=== PATIENT | male | born 1945 | race Caucasian/White ===

== ENCOUNTER 2021-10-13 20:36 | Inpatient (IN) | payer BC, MEDICARE, SELFPAY ==
[2021-10-13 20:42] VITALS: BP 183/58; PULSE 63; TEMP 36.2; O2SAT 96
--- NOTE | 2021-10-13 20:45 | RT.EKG_ITS ---
APPROVED REPORT Exam: Resting ECG Reason for Exam: SOB, Near syncope Patient Location: E HR:64 bpm ECG Measurements Heart Rate 64 AXIS HI 214 P 0 QRSd 94 QRS 51 QT 410 T 47 QTc 423 Conclusion Sinus rhythm...normal P axis, V-rate 60- 99 Supraventricular bigeminy...bigeminy string>4 w/ SV complexes Sinus pause...long R-R interval, normal QRSd Anterior infarct, old...Q >40mS, abnormal ST-T, V2-V5
[2021-10-13 20:48] VITALS: RESP 18
--- NOTE | 2021-10-13 21:30 | DI.RAD_ITS ---
Exam(s) XR PORTABLE CHEST AP EXAM: XR PORTABLE CHEST AP CLINICAL HISTORY: chest pain TECHNIQUE: COMPARISON: No exams were available for comparison FINDINGS: The heart is not enlarged. There are diffuse bilateral pulmonary interstitial radiodensities which a re nonspecific and may be chronic. Possible superimposed left-sided diffuse opacities. No prior vernon ms available for comparison. IMPRESSION: Probable pulmonary fibrosis, possible left-sided acute infiltrate. Appropriate follow-up radiographs or chest CT recommended. RADIATION DOSE DELIVERED: Total DLP
--- NOTE | 2021-10-13 21:30 | DI.CT_ITS ---
Exam(s) CT BRAIN CTA EXAM: CT BRAIN CTA CLINICAL HISTORY: expressive aphasia. TECHNIQUE: Imaging Protocol: Axial CT angiography was performed with multi-slice acquisition and mu lti-planar and/or 3D reconstructions. Pre contrast scanning and 5 minutes post contrast delay scanni ng were also obtained. CONTRAST MATERIAL: Intravenous: Omnipaque 350 Contrast volume:structured data in ml COMPARISON: No exams were available for comparison FINDINGS: CT HEAD WITHOUT: Ventricles and Extra axial spaces: Normal in size and morphology for the patient's age. Hemorrhage: None. Cerebral parenchyma: Mild generalized cerebral atrophy. Midline shift: None. Brainstem/Cerebellum: Normal. Calvarium: Normal. Visualized Paranasal sinuses/Mastoids: Clear. CTA HEAD WITH: Internal Carotid Arteries: Petrous: Normal. Cavernous: Normal. Cerebral: Normal. Middle Cerebral Arteries: Right: No aneurysm, occlusion or significant stenosis. Left: No aneurysm, occlusion or significant stenosis. Anterior Cerebral Arteries: Right: No aneurysm, occlusion or significant stenosis. Left: No aneurysm, occlusion or significant stenosis. Posterial Cerebral Arteries: Right: No aneurysm, occlusion or significant stenosis. Left: No aneurysm, occlusion or significant stenosis. Vertebral Arteries: Right: No aneurysm, occlusion or significant stenosis. Left: No aneurysm, occlusion or significant stenosis. Basilar Artery: No aneurysm, occlusion or significant stenosis. No mass lesion or enhancing lesion identified on post contrast scanning. IMPRESSION: Normal CT of the head without contrast. Normal CTA examination of the [facility] [place]. Normal post contrast cranial CT. RADIATION DOSE DELIVERED: 2,133.65mGy.cm Total DLP 2,133.65mGy.cm Total DLP !Error CTDIvol DATA REPOSITORY: All CT scans at this facility are submitted to the National Radiology Data Registry (NRDR) Dose Index Registry (DIR) with the [employer] (ACR). RADIATION OPTIMIZATION: All CT scans at this facility use at least one of these dose optimization te chniques: automated exposure control; mA and/or kV adjustment per patient size (includes targeted exa ms where dose is matched to clinical indication); or iterative reconstruction.
--- NOTE | 2021-10-13 21:39 | W.ED.GENAD ---
Discharge Plan Disposition Patient Disposition: [facility] INPATIENT Condition: Stable Discharge Details Clinical Impression: Expressive aphasia Primary Care Provider: Linda,Local ED Provider: Harlan Lowe Home Meds and New Rx's Prescriptions: No Action atorvastatin 40 mg Tablet 40 mg PO DAILY diltiazem HCl 180 mg Capsule,Extended Release 24 Hr 180 mg PO DAILY aspirin [Aspir-81] 81 mg Tablet,Delayed Release (Dr/Ec) 81 mg PO DAILY oxycodone-acetaminophen [Percocet] 5-325 mg Tablet 1 tab PO TID metformin 1,000 mg Tablet 1,000 mg PO BID omeprazole 20 mg Capsule,Delayed Release(Dr/Ec) 20 mg PO DAILY loratadine [Claritin] 10 mg Tablet 10 mg PO DAILY Farxiga 10 mg Tablet 10 mg PO DAILY gabapentin 300 mg Tablet 300 mg PO DAILY Lantus U-100 Insulin 100 unit/mL Cartridge 24 unit SUBCUT HS Medical Decision Making 76 yo male with hx of cad s/p stent 3-4 years ago at [facility] per ,htn, dm, who comes in with with concerns for difficulty with speech. They are visiting form [place]. He was last seen normal around 5pm and noticed around 6pm he was having issues with speech and couldn't relay things correctly to her, he is normally caox4 with normal speech. He arrives stable, is oriented to person and time and knows month and year, but when asked where he is states he's in a hospital. When I ask what hospital or where the hospital is he states [facility] is apparently his p[facility]. He has clear speech but seems to be having word findings difficulty. CN II-XII intact, no drift, normal sensation. NIH of 2 on my exam due to the language/aphasia portion. He denies chest pain or dyspnea on my exam. Concern for cva, is now at 4.5 hours from last known normal and nih is low so do not feel lytics indicated, will obtain cbc, cmp, ua, and cta of the brain to further evaluate imaging unremarkable, remains stable though word finding seems to have improved, has been in afib for a few minutes intermittently, states years ago when he was dehydrated was in afib. No beds with tele at any local hospital including [facility], [facility] [place], [facility] [place] [facility], will discuss with hospitalist about admission and board in the ED Differential Diagnosis Differential Diagnosis: cva/tia, electrolyte abnormality Imaging Data Radiologic Study: Attestation: I personally reviewed and interpreted this imaging study as follows: Imaging: X-Ray Radiologist's impression: IMPRESSION: Question left lower lobe opacity/pneumonia Mild interstial pneumonitis versus edema Radiologic Study #2: Attestation: I personally reviewed and interpreted this imaging study as follows: Imaging: CT Scan Radiologist's impression: no acute findings Lab Data Lab results reviewed: Yes I reviewed the patient's lab results. ECG Data Attestation: I personally reviewed and interpreted this ECG (s) as follows: Interpretation: sinus, rate of 64, no stemi or acute st t wave ischemic findings HPI General Mode of arrival: ambulatory. Date/Time Provider Initiated Documentation: 10/13/21 20:37. Information obtained by: patient and family. History of Present Illness 76 year old M presents to the emergency department with the chief complaint of word finding difficulty, described as moderate, Patient started experiencing this hour(s) (5) and it has been constant. No relieving factors improve symptom(s), No exacerbating factors reported . Patient notes no other symptoms.. Patient did receive the following treatments prior to arrival, none Related Data Home Medications Medication Instructions Recorded Confirmed aspirin 81 mg tablet,delayed 81 mg PO DAILY 10/13/21 10/13/21 release atorvastatin 40 mg tablet 40 mg PO DAILY 10/13/21 10/13/21 dapagliflozin 10 mg tablet 10 mg PO DAILY 10/13/21 10/13/21 (Farxiga) diltiazem HCl 180 mg capsule,24 180 mg PO DAILY 10/13/21 10/13/21 hr,extended release gabapentin 300 mg tablet 300 mg PO DAILY 10/13/21 10/13/21 insulin glargine 100 unit/mL 24 unit subcut HS 10/13/21 10/13/21 subcutaneous cartridge loratadine 10 mg tablet (Claritin) 10 mg PO DAILY 10/13/21 10/13/21 metformin 1,000 mg tablet 1,000 mg PO BID 10/13/21 10/13/21 omeprazole 20 mg capsule,delayed 20 mg PO DAILY 10/13/21 10/13/21 release oxycodone-acetaminophen 5 mg-325 1 tab PO TID 10/13/21 10/13/21 mg tablet (Percocet) Allergies Allergy/AdvReac Type Severity Reaction Status Date / Time hydromorphone [From Dilaudid] AdvReac Unverified 10/13/21 21:48 General Stated Complaint: SOB YESENIA: 2 Review of Systems All systems reviewed & are unremarkable except as noted in HPI and below Constitutional Constitutional: Denies chills, Denies fever(s) and Denies weakness Cardiovascular Cardiovascular: Denies chest pain and Denies dyspnea Respiratory Respiratory: Denies cough and Denies dyspnea Gastrointestinal Gastrointestinal: Denies abdominal pain, Denies nausea and Denies vomiting Musculoskeletal Musculoskeletal: Denies joint swelling Integumentary/Breasts Skin/Breast: Denies rash Neurologic Neurologic: Denies weakness PFSH All Active Problems (Updated 10/13/21 @ 23:06 by Harlan Lowe MD) Expressive aphasia (Acute) Medical History (Updated 10/13/21 @ 23:06 by Harlan Lowe MD) Diabetes Social History Smoking risk assessment performed?: No Exam Const General: no acute distress Orientation: alert HENMT Head: normal to inspection Ears: external ears normal General nose exam: external nose normal Mouth: moist mucous membranes Eyes General: appearance normal, both eyes and all related structures Neck Neck: normal visual inspection Resp Effort & Inspection: normal respiratory effort and able to speak in complete sentences Cardio Rate: regular rate Skin General skin exam: no rashes or lesions noted Neuro General: patient alert Cranial Nerves: CN's II-XI intact bilaterally and PERRL Extrem General: normal to inspection Psych Mental Status: mental status grossly normal Course Vital Signs Vital signs: Vital Signs Temperature 36.2 C L 10/13/21 20:42 Pulse 63 10/13/21 20:42 Blood Pressure 183/58 H 10/13/21 20:42 Pulse Oximetry 96 10/13/21 20:42 Temperature 36.2 C L 10/13/21 20:42 Temperature Source Temporal Artery Scan 10/13/21 20:42 Pulse 63 10/13/21 20:42 Respiratory Rate 18 10/13/21 20:48 Respiratory Effort 10/13/21 20:48 Respiratory Depth Normal 10/13/21 20:48 Respiratory Pattern Normal 10/13/21 20:48 Blood Pressure 183/58 H 10/13/21 20:42 Blood Pressure Position Supine 10/13/21 20:42 Pulse Oximetry 96 10/13/21 20:42 Oxygen Delivery Method Room Air 10/13/21 20:42 Oxygen Flow Rate 0 10/13/21 20:42 Pain Level 0 10/13/21 20:42 Lab/Test Results Lab/Test Results: Laboratory Tests Range/Units 10/13/21 21:30 PT Cancelled INR Cancelled APTT Cancelled D-Dimer Cancelled
[2021-10-13 21:51] LABS: Source Nasal/Nares
[2021-10-13 21:54] LABS: Abs Immature Grans 0.03 10^3/uL (0.0-0.06); Absolute Basophil Count 0.04 10^3/uL (0.0-0.2); Absolute Eosinophil Count 0.25 10^3/uL (0.0-0.7); Absolute Lymphocyte Count 1.96 10^3/uL (1.2-3.4); Absolute Monocyte Count 0.49 10^3/uL (0.1-0.8); Absolute Neutrophil Count 5.59 10^3/uL (1.2-6.7); Basophils % 0.5; HCT 37.3 % (40.0-50.0); Immature Grans % 0.4; Lymphocytes % 23.4; MCH 30.3 pg (27.0-33.0); MCHC 32.2 % (32.0-36.0); MCV 94 fL (80-95); MPV 9.7 fL (8.0-11.0); Monocytes % 5.9; Neutrophils % 66.8; Platelet Count 250 10^3/uL (130-400); RBC 3.96 10^6/uL (4.36-5.78); RDW 14.9 % (11.8-14.1); RDW-SD 51.7 fL; WBC 8.36 10^3/uL (4.4-10.8)
[2021-10-13 22:02] LABS: Bilirubin Negative (Negative); Blood Negative (Negative); Clarity Clear (Clear); Glucose 500 mg/dL (Negative); Ketones Negative (Negative); Leukocyte Esterase Negative (Negative); Nitrite Negative (Negative); Specific Gravity 1.015 (1.005-1.025); Urobilinogen 0.2 EU/dL (Up TO 0.2); pH 5.5 (5-8)
[2021-10-13 22:19] LABS: ALT 22 U/L (16-63); AST 20 U/L (15-37); Albumin 4.5 g/dL (3.4-5.0); Alkaline Phosphatase 69 U/L (46-116); BUN 28 mg/dL (7-18); Bilirubin, Total 0.4 mg/dL (0.2-1.0); CREATININE 1.7 mg/dL (0.70-1.30); Calcium 9.7 mg/dL (8.5-10.1); Chloride 104 mmol/L (98-107); Estimated GFR 39.28 (mL/min/1.73m2); Glucose 151 mg/dL (74-106); Magnesium 2.5 mg/dL (1.8-2.4); Potassium 4.8 mmol/L (3.5-5.1); Sodium 139 mmol/L (136-145); Total Protein 9.2 g/dL (6.4-8.2); Troponin I < 50 ng/L (<or=60)
[2021-10-13] MEDS: Omnipaque 350 MG/ML 100 ML BTL IJ (22:20)
[2021-10-13 22:21] LABS: NT-proBNP 1745 pg/mL (<300); TSH (W/Ref FT4) 2.75 uIU/mL (0.36-3.74)
[2021-10-13 22:24] LABS: COVID-19 PCR Negative (Negative)
--- NOTE | 2021-10-13 22:40 | DI.VRAD_ITS ---
PROCEDURE INFORMATION: Exam: CTA Head With Contrast, Arteriography Exam date and time: 10/13/2021 10:07 PM Age: 76 years old Clinical indication: Other: Expressive aphasia TECHNIQUE: Imaging protocol: Computed tomographic angiography of the head with contrast. Exam focused on the arteries. 3D rendering (Not supervised by radiologist): MIP and/or 3D reconstructed images were created by the technologist. Contrast material: OMNIPAQUE 350; Contrast volume: 85 ml; Contrast route: INTRAVENOUS (IV); COMPARISON: No relevant prior studies available. FINDINGS: ANTERIOR CIRCULATION: Right internal carotid artery: Tortuous distal cervical segment. Intracranial segment is patent with no significant stenosis. No aneurysm. Right middle cerebral artery: No occlusion or significant stenosis. No aneurysm. Right anterior cerebral artery: No occlusion or significant stenosis. No aneurysm. Left internal carotid artery: Intracranial segment is patent with no significant stenosis. No aneurysm. Left middle cerebral artery: No occlusion or significant stenosis. No aneurysm. Left anterior cerebral artery: No occlusion or significant stenosis. No aneurysm. POSTERIOR CIRCULATION: Right vertebral artery: No occlusion or significant stenosis. No aneurysm. Left vertebral artery: No occlusion or significant stenosis. No aneurysm. Basilar artery: No occlusion or significant stenosis. No aneurysm. Right posterior cerebral artery: No occlusion or significant stenosis. No aneurysm. Left posterior cerebral artery: No occlusion or significant stenosis. No aneurysm. Brain: No definite mass, mass effect, or midline shift. Cerebral ventricles: No ventriculomegaly. Bones/joints: Unremarkable. No acute fracture. Soft tissues: Unremarkable. Mild poypoid tissue in the ethmoid cells and left maxillary sinus IMPRESSION: No large vessel stenosis or occlusion. Dictated and Authenticated by: Antony Ayala MD. Ordering:SHOBHA Claros MD
--- NOTE | 2021-10-13 22:42 | DI.VRAD_ITS ---
PROCEDURE INFORMATION: Exam: XR Chest Exam date and time: 10/13/2021 10:09 PM Age: 76 years old Clinical indication: Other: Chest pain TECHNIQUE: Imaging protocol: Radiologic exam of the chest. Views: 1 view. COMPARISON: No relevant prior studies available. FINDINGS: Lungs: Mild interstitial thickening. Question left lower lobe opacity Pleural spaces: No pleural effusion. No pneumothorax. Heart/Mediastinum: Mild cardiomegaly. Bones/joints: Unremarkable. IMPRESSION: Question left lower lobe opacity/pneumonia Mild interstial pneumonitis versus edema Dictated and Authenticated by: Antony Ayala MD. Ordering:SHOBHA Claros MD
--- NOTE | 2021-10-13 23:45 | W.PM.HP.N ---
Date of service: 10/13/21 Time of Service: 23:48 Assessment and Plan Assessment and plan (1) Stroke: Status: Chronic Assessment and plan: Stroke, clinically resolved, perhaps might be able to call this a prolonged TIA. In any case the AF is a, probably the, likely operative factor, but in any case he is high risk by [id number] score. Will begin DOAC. Is auto rate controlled at present. Will obtain MRI in AM. Due to lack of telemetry beds will maintain in ER overnight. Reviewed ADs, is Full Code. History of Present Illness History of Present Illness Chief Complaint: aphasia Narrative: 76 male with HTN, DM -- here with sudden onset of language disturbance consisting o0f word finding difficulty. This manifested during a card game in which he ,for example, misnamed a card or couldn't name it at all. Time of onset approx 4 hours prior to visit. In ER findings of note for negative head CTA and EKG showing probable AFib (auto rate controlled in 60s), diagnosis made definite on review of telemetry. I was asked to evaluate for admission. At time of interview language deficits have entirely resolved. Review of Systems Narrative: per HPI PFSH All Active Problems (Updated 10/13/21 @ 23:57 by Joaquin Frank MD) Stroke (Chronic) Expressive aphasia (Acute) Medical History Diabetes Social History Smoking risk assessment performed?: No Meds Allergies and Home Medications Allergies Allergy/AdvReac Type Severity Reaction Status Date / Time hydromorphone [From Dilaudid] AdvReac Unverified 10/13/21 21:48 Home Medications Medication Instructions Recorded Confirmed Type aspirin 81 mg tablet,delayed 81 mg PO DAILY 10/13/21 10/13/21 History release atorvastatin 40 mg tablet 40 mg PO DAILY 10/13/21 10/13/21 History dapagliflozin 10 mg tablet 10 mg PO DAILY 10/13/21 10/13/21 History (Farxiga) diltiazem HCl 180 mg capsule,24 180 mg PO DAILY 10/13/21 10/13/21 History hr,extended release gabapentin 300 mg tablet 300 mg PO DAILY 10/13/21 10/13/21 History insulin glargine 100 unit/mL 24 unit subcut HS 10/13/21 10/13/21 History subcutaneous cartridge loratadine 10 mg tablet (Claritin) 10 mg PO DAILY 10/13/21 10/13/21 History metformin 1,000 mg tablet 1,000 mg PO BID 10/13/21 10/13/21 History omeprazole 20 mg capsule,delayed 20 mg PO DAILY 10/13/21 10/13/21 History release oxycodone-acetaminophen 5 mg-325 1 tab PO TID 10/13/21 10/13/21 History mg tablet (Percocet) Exam Narrative Exam Narrative: 183.58, 63, 36.2, 18, 96% RA. HEENT atraumatic; neck supple w/o bruit; lungs clear, heart irr/irr; abdomen soft and NT; extremities w/o edema' neuro Ox3, lucid, speech fluent, CN intact, motor 5/5 Results Labs Result diagrams: 10/13/21 21:45 10/13/21 21:45 Labs: Laboratory Results - last 24 hr 10/13/21 10/13/21 10/13/21 21:30 21:44 21:45 WBC RBC Hgb Hct MCV MCH MCHC RDW Plt Count MPV Immature Gran % Neutrophils % Lymphocytes % Monocytes % Eosinophils % Basophils % Nucleated RBC % Absolute Neutrophils Absolute Lymphocytes Absolute Monocytes Absolute Eosinophils Absolute Basophils PT Cancelled INR Cancelled APTT Cancelled D-Dimer Cancelled Sodium 139 Potassium 4.8 Chloride 104 Carbon Dioxide 27.0 Anion Gap 8.0 BUN 28 H Creatinine 1.7 H Estimated GFR/1.73 m2 39.28 Glucose 151 H Calcium 9.7 Magnesium 2.5 H Total Bilirubin 0.4 AST 20 ALT 22 Alkaline Phosphatase 69 Troponin I < 50 NT-Pro-B Natriuret Pep Total Protein 9.2 H Albumin 4.5 TSH Urine Color Urine Clarity Urine pH Ur Specific [place] Urine Protein Urine Ketones Urine Blood Urine Nitrite Urine Bilirubin Urine Urobilinogen Ur Leukocyte Esterase Urine Glucose COVID-19 Source Nasal/Nares SARS-CoV-2 (PCR) Negative 10/13/21 10/13/21 10/13/21 21:45 21:45 21:56 WBC 8.36 RBC 3.96 L Hgb 12.0 L Hct 37.3 L MCV 94 MCH 30.3 MCHC 32.2 RDW 14.9 H Plt Count 250 MPV 9.7 Immature Gran % 0.4 Neutrophils % 66.8 Lymphocytes % 23.4 Monocytes % 5.9 Eosinophils % 3.0 Basophils % 0.5 Nucleated RBC % 0.0 Absolute Neutrophils 5.59 Absolute Lymphocytes 1.96 Absolute Monocytes 0.49 Absolute Eosinophils 0.25 Absolute Basophils 0.04 PT INR APTT D-Dimer Sodium Potassium Chloride Carbon Dioxide Anion Gap BUN Creatinine Estimated GFR/1.73 m2 Glucose Calcium Magnesium Total Bilirubin AST ALT Alkaline Phosphatase Troponin I NT-Pro-B Natriuret Pep 1745 H Total Protein Albumin TSH 2.75 Urine Color Yellow Urine Clarity Clear Urine pH 5.5 Ur Specific [place] 1.015 Urine Protein Negative Urine Ketones Negative Urine Blood Negative Urine Nitrite Negative Urine Bilirubin Negative Urine Urobilinogen 0.2 Ur Leukocyte Esterase Negative Urine Glucose 500 H COVID-19 Source SARS-CoV-2 (PCR) Last Vital Signs Temp 36.2 C L 10/13/21 20:42 Pulse 63 10/13/21 20:42 Resp 18 10/13/21 20:48 BP 183/58 H 10/13/21 20:42 Pulse Ox 96 10/13/21 20:42
[2021-10-13 23:56] VITALS: BP 159/60; PULSE 53; RESP 18; O2SAT 94
[2021-10-14] VITALS (87 sets, daily range): BP systolic 124–166; BP diastolic 35–73; PULSE 40–73; RESP 10–29; TEMP 36.4–37.1; O2SAT 20–99
--- NOTE | 2021-10-14 | DI.MRI_ITS ---
Exam(s) MR BRAIN WO EXAM: MR BRAIN WO CLINICAL HISTORY: stroke -- aphasia TECHNIQUE: Multiplanar multisequence MRI of the brain was performed. COMPARISON: No exams were available for comparison FINDINGS: There is moderate generalized cerebral atrophy. There are areas of abnormal signal seen on T2 weighted and FLAIR imaging which involve the left tempo ral frontal region, these correspond with the areas of diffusion restriction with abnormal signal als o seen on ADC mapping and the findings are consistent with a small acute or subacute infarction invol ving left temporal lobe including the insula as well as portions of the inferior left frontal lobe pe riod. The orbital and temporal bone structures appear intact as does the pituitary. Susceptibility weighted imaging shows no evidence of intracranial hemorrhage. T2 weighted images are poor technical quality and the [id number] vascular flow voids are diffic ult to evaluate but appear grossly unremarkable. IMPRESSION: The appearance is consistent with small acute or subacute left temporal/frontal lobe infarct. DATA REPOSITORY:
--- NOTE | 2021-10-14 | DI.US_ITS ---
Exam(s) US CAROTID EXAM: US CAROTID CLINICAL HISTORY: CVA TECHNIQUE: Ultrasound performed using standard protocol. COMPARISON: No exams were available for comparison FINDINGS: Duplex evaluation of the carotid circulation was performed with 2D and Doppler evaluation of the audie rial circulation. On the right the common, internal, and external carotid artery show normal flow velocities and little if any visible atheromatous plaque. On the left there is atheromatous plaque noted in the carotid bulb and proximal to mid internal carot id artery. Flow velocity elevation to 178 cm/seconds in the mid internal carotid artery on the left is consistent with a luminal diameter stenosis 50-69 percent of the vessel. There is bilateral antegrade vertebral flow. IMPRESSION: The Doppler findings are consistent with stenosis of 50-69 percent of the luminal diameter of the mi d to distal left internal carotid artery. No significant stenosis identified in right ICA or elsewhere. DATA REPOSITORY:
--- NOTE | 2021-10-14 00:37 | NUR.NOTE ---
Pt's HR went as low as 37 on monitor while pt was sleeping. Pt asymptomatic, denies any dizziness. MD notified. Pt's BP 150/57. Will continue to monitor per MD.
[2021-10-14 01:28] LABS: Troponin I < 50 ng/L (<or=60)
--- NOTE | 2021-10-14 07:40 | NUR.NOTE ---
pt wanted to leave hospital. stated he would see his own doctor instead, didnt want to stay at [facility] any longer. RN and MD spoke with pt and convinced him to stay for 8am MRI. bfast was ordered for pt. pt pulled out IV.
[2021-10-14] MEDS: metFORMIN 500 MG TAB 1000 MG PO (08:01)
[2021-10-14] MEDS: oxyCODONE 5 mg/Acetaminophen 325 mg TAB 1 TAB PO ×3 (08:01→20:17)
[2021-10-14] MEDS: Gabapentin 300 MG CAP PO (08:02)
[2021-10-14] MEDS: Loratidine 10 MG TAB PO (08:02)
[2021-10-14] MEDS: Omeprazole 20 MG CAPCR PO (08:02)
[2021-10-14] MEDS: LORazepam 20 MG/10 ML VIAL IVP (08:23)
--- NOTE | 2021-10-14 08:32 | NUR.NOTE ---
Nursing Note: at 07:45 assumed care of patient, was informed patient ripped out original IV catheter, MRI placed another IV catheter so nurse could give IV anxiety medication.
[2021-10-14] MEDS: Aspirin E.C. 81 MG TABEC PO (09:10)
[2021-10-14] MEDS: Atorvastatin 40 MG TAB PO (09:10)
--- NOTE | 2021-10-14 09:23 | NUR.NOTE ---
Nursing Note: patient awake and sitting on side of bed, patient confused and only oriented to self, informed MD.
[2021-10-14 09:42] LABS: Hemoglobin A1C 6.8 % (<5.7)
[2021-10-14 09:47] LABS: Anion Gap 10.3 mmol/L (3-11); BUN 26 mg/dL (7-18); CO2 24.7 mmol/L (21.0-32.0); CREATININE 1.2 mg/dL (0.70-1.30); Calcium 9.2 mg/dL (8.5-10.1); Calculated LDL 36 mg/dL (<100); Chloride 104 mmol/L (98-107); Cholesterol 95 mg/dL (<200); Estimated GFR 58.71 (mL/min/1.73m2); Glucose 139 mg/dL (74-106); HDL Cholesterol 46 mg/dL (40-60); Potassium 4.8 mmol/L (3.5-5.1); Sodium 139 mmol/L (136-145); Triglyceride 65 mg/dL (<150)
--- NOTE | 2021-10-14 11:02 | PGE_ITS ---
Date of Service Date of service: 10/14/21 Time of Service: 10:45 Assessment and Plan Assessment and plan (1) Acute CVA (cerebrovascular accident): Status: Acute Assessment and plan: Small acute vs subacute L temporal/frontal lobe infarct, present on admission. In setting of a new diagnosis of Afib but also presence of atherosclerosis in the L carotid system. Continue cardiac monitoring, await echo, neurology consult. Continue baby asa. Eliquis not yet started - awaiting opinion from Neurology as to the etiology of the CVA, which will determine therapy (EUSEBIA vs DOAC). (2) Expressive aphasia: Status: Acute Assessment and plan: Due to above. As above. Speech therapy consulted. The findings on my exam may have been due to the ativan. (3) Atrial fibrillation: Status: Acute Assessment and plan: New diagnosis. Rate controlled on cardizem. Await echo. Concern for CHF - receiving 1 dose of IV lasix this am. CHADSVASC of 7 - 11.2 % stroke risk per year. Anticoagulation indicated, but awaiting discussion with neurology as to whether the patient should be on asa + eliquis vs asa + plavix vs plavix + eliquis. (4) Non-insulin dependent type 2 diabetes mellitus: Status: Chronic Assessment and plan: A1c 6.8. Continue home insulin; SSI while in the hospital. Holding metfromin as the patient receieved IV contrast (5) Obstructive sleep apnea: Status: Suspected Assessment and plan: Between bradycardia during sleep, snoring, and diagnosis of Afib, BARON is strongly suspected. I also think the patient's BMI is higher than 25.8 as listed in the computer, based on my evaluation. Will need outpatient sleep study (6) DVT prophylaxis: Status: Acute Assessment and plan: Read discussion re initiation of full anticoagulation above (7) Discharge planning issues: Status: Acute Assessment and plan: Full code Continues to require hospitalization. Subjective Subjective Interval history since last seen: Mr Poole is somnolent at the time of my exam, having just received ativan prior to the MRI. Prior to the MRI, his speech was totally back to normal, and he was able to text appropriately with his , per her. After the MRI, he came back with inappropriate word choice again and somnolent. He is not waking up long enough for me to answer extensive questions. When I asked him where we were, he answered we were breakfasting. He was not answering other questions for me, falling asleep during our conversation and starting to snore. He did squeeze both of my hands and smiled (symmetrically) on command. Exam Narrative Exam Narrative: General: Somnolent male who requires repeated painful stimulation to wake up and falls promptly asleep, snoring HEENT: When eyes open, EOMI, MMM, CN II-XII intact Heart: bradycardic in the 50s, irregularly irregular rhythm, no m/r/g Lungs: CTAB Abdomen: soft, nontender, nondistended Extremities: no edema BLEs, not participating fully with neurological exam, but able to squeeze with both hands Objective Last Vital Signs Temp 36.2 C L 10/13/21 20:42 Pulse 49 L 10/14/21 06:31 Resp 12 10/14/21 10:20 BP 166/52 H 10/14/21 06:31 Pulse Ox 96 10/14/21 09:40 Laboratory Results - last 24 hr 10/13/21 10/13/21 10/13/21 21:30 21:44 21:45 WBC RBC Hgb Hct MCV MCH MCHC RDW Plt Count MPV Immature Gran % Neutrophils % Lymphocytes % Monocytes % Eosinophils % Basophils % Nucleated RBC % Absolute Neutrophils Absolute Lymphocytes Absolute Monocytes Absolute Eosinophils Absolute Basophils PT Cancelled INR Cancelled APTT Cancelled D-Dimer Cancelled Sodium 139 Potassium 4.8 Chloride 104 Carbon Dioxide 27.0 Anion Gap 8.0 BUN 28 H Creatinine 1.7 H Estimated GFR/1.73 m2 39.28 Glucose 151 H Hemoglobin A1c Calcium 9.7 Magnesium 2.5 H Total Bilirubin 0.4 AST 20 ALT 22 Alkaline Phosphatase 69 Troponin I < 50 NT-Pro-B Natriuret Pep Total Protein 9.2 H Albumin 4.5 Triglycerides Total Cholesterol LDL Cholesterol, Calc HDL Cholesterol TSH Urine Color Urine Clarity Urine pH Ur Specific [place] Urine Protein Urine Ketones Urine Blood Urine Nitrite Urine Bilirubin Urine Urobilinogen Ur Leukocyte Esterase Urine Glucose COVID-19 Source Nasal/Nares SARS-CoV-2 (PCR) Negative 10/13/21 10/13/21 10/13/21 21:45 21:45 21:56 WBC 8.36 RBC 3.96 L Hgb 12.0 L Hct 37.3 L MCV 94 MCH 30.3 MCHC 32.2 RDW 14.9 H Plt Count 250 MPV 9.7 Immature Gran % 0.4 Neutrophils % 66.8 Lymphocytes % 23.4 Monocytes % 5.9 Eosinophils % 3.0 Basophils % 0.5 Nucleated RBC % 0.0 Absolute Neutrophils 5.59 Absolute Lymphocytes 1.96 Absolute Monocytes 0.49 Absolute Eosinophils 0.25 Absolute Basophils 0.04 PT INR APTT D-Dimer Sodium Potassium Chloride Carbon Dioxide Anion Gap BUN Creatinine Estimated GFR/1.73 m2 Glucose Hemoglobin A1c Calcium Magnesium Total Bilirubin AST ALT Alkaline Phosphatase Troponin I NT-Pro-B Natriuret Pep 1745 H Total Protein Albumin Triglycerides Total Cholesterol LDL Cholesterol, Calc HDL Cholesterol TSH 2.75 Urine Color Yellow Urine Clarity Clear Urine pH 5.5 Ur Specific [place] 1.015 Urine Protein Negative Urine Ketones Negative Urine Blood Negative Urine Nitrite Negative Urine Bilirubin Negative Urine Urobilinogen 0.2 Ur Leukocyte Esterase Negative Urine Glucose 500 H COVID-19 Source SARS-CoV-2 (PCR) 10/14/21 10/14/21 10/14/21 01:06 09:18 09:18 WBC RBC Hgb Hct MCV MCH MCHC RDW Plt Count MPV Immature Gran % Neutrophils % Lymphocytes % Monocytes % Eosinophils % Basophils % Nucleated RBC % Absolute Neutrophils Absolute Lymphocytes Absolute Monocytes Absolute Eosinophils Absolute Basophils PT INR APTT D-Dimer Sodium 139 Potassium 4.8 Chloride 104 Carbon Dioxide 24.7 Anion Gap 10.3 BUN 26 H Creatinine 1.2 Estimated GFR/1.73 m2 58.71 Glucose 139 H Hemoglobin A1c 6.8 H Calcium 9.2 Magnesium Total Bilirubin AST ALT Alkaline Phosphatase Troponin I < 50 NT-Pro-B Natriuret Pep Total Protein Albumin Triglycerides 65 Total Cholesterol 95 LDL Cholesterol, Calc 36 HDL Cholesterol 46 TSH Urine Color Urine Clarity Urine pH Ur Specific [place] Urine Protein Urine Ketones Urine Blood Urine Nitrite Urine Bilirubin Urine Urobilinogen Ur Leukocyte Esterase Urine Glucose COVID-19 Source SARS-CoV-2 (PCR) Objective Narrative Objective Narrative: MRI brain: The appearance is consistent with small acute or subacute left temporal/frontal lobe infarct. US carotid: The Doppler findings are consistent with stenosis of 50-69 percent of the luminal diameter of the mid to distal left internal carotid artery. No significant stenosis identified in right ICA or elsewhere. Echo: ordered, pending
[2021-10-14] MEDS: Furosemide 20 MG/2 ML VIAL IVP (11:16)
[2021-10-14] MEDS: Insulin Aspart 300 UNITS/3 ML PEN SC ×3 (11:17→22:13)
--- NOTE | 2021-10-14 15:26 | PT.INIE ---
Date of service: 10/14/21 Time of Service: 14:45 PT Notes Inpatient Physical Therapy Evaluation Date: 10/14/21 Referring Doctor: Iliana Sainz PT Orders: PT CONSULT: Evaluate and Treat Precautions: Standard Patient Profile/Admitting Diagnosis: Orders received for this 76 year old male with hx of fair physical health and mild to moderate health issues at baseline. He was playing cards [place] the [place]ground and was starting to have trouble with speech and recollection. MOvements began to deteriorate and he was brought to the Emergency department. Imaging has been for the most part inconclusive and the working diagnosis is CVA vs long standing TIA. He is mildly sedated with Ativan through the morning and this afternoon. Patient found to be in A-fib as well. PMHX: Diabetes HTN Recent Anterior approach DIANA in April Cardiac Stent Social History/Home Situation: Lives in [place] with his spouse. Currently staying in a travel trailer at the [facility] in [place]. Has a few steps to enter the camper. Per his spouse he has been having some balance deficits lately premorbid of this current admission. Equipment Owned/DME: Has straight cane and walker. Utilizes the cane at times for pain. Subjective: Patient states he is doing okay Objective: Lying supine in ED, with head of bed to 35 degrees Mental Status: Oriented and alert to person, place, time Pain: 0/10 ROM: Right Upper Extremity: WFL Left Upper Extremity: WFL Right Lower Extremity: WFL Left Lower Extremity: WFL Strength: Right Upper Extremity: Shoulder flexion, biceps, triceps, wrist extension and tree faller 5/5 Left Upper Extremity: Shoulder flexion, biceps, triceps, wrist extension and tree faller 5/5 Right Lower Extremity: Hip flexion 4+/5, quads 5/5, hamstrings 5/5, dorsiflexion 5/5, plantarflexion 5/5 Left Lower Extremity: Hip flexion 4+/5, quads 5/5, hamstrings 5/5, dorsiflexion 5/5, plantarflexion 5/5 Bed Mobility/Transfers: Supine-sit: CGA Sit-stand: CGA Stand-sit: CGA Gait: Assistance--min A Distance-- 2 steps forward and backward Device-- NA Balance: Static Sitting: Normal Dynamic Sitting: Good Static Standing: Fair Dynamic Standing: Poor Special Tests: AMPAC Raw Score 19, CMS Score 41.77% 4 stage balance test Feet together 10 sec Semi tandem 10 sec Full tandem, Unable without CGA Single leg stance, Unable without CGA Informed Consent/Education: Patient instructed in purpose of PT consult and plan of care. ASSESSMENT: Patient is a 76 year old male with hx of fair [facility] Admitted with CVA/long standing TIA Patient presents with the following impairment level findings: Deficits in balance, gait impairments, ambulation intolerance, assistance needed for transfers. Pt will benefit from skilled therapy intervention in order to remedy their functional limitations and restore patient to a more appropriate and stable functional level. Impairments are contributing to the following functional limitations: AMPAC score 19 CMS Score: 41.77% Patient is assessed as a Moderate complexity Initial evaluation [id number] based on the following: History: see above Examination: see above Presentation: Evolving Decision Making: Moderate based on AMPAC of 41.77% Goals: Goals X1 week 1. Sit-Stand Independent 2. Stand-Sit Independent 3. Bed-Chair Independent 4. Gait With least restrictive assisted device up to 300feet 5: Stairs Independent with 3 steps into camper 6: Independent in Home program 7. Completion up to Stage 4 of 4 stage balance test, with 10 sec single leg stance. Plan of Care/Treatment Plan: 1-2x/day, 7 days/week x 1 week. Plan of care has been reviewed with the TRANSCRIBING OPERATOR HEAD providing the service under Physical Therapy direction. Initiate Physical Therapy intervention for strengthening, bed mobility, transfers, gait, stairs, balance training, use of assistive device. DISCHARGE RECOMMENDATIONS: ( ) Home with no services ( ) Home with services [specify] (X ) Home with outpatient PT with focus on balance and gait stability, safety awareness, and conditioning. ( ) SNF for continued rehabilitation ( ) Wheel Shop Supervisor Care ( ) SNF versus LTC based on ability to participate and progress TREATMENT CODE/TIME: Moderate complexity Initial evaluation [id number] Marquis Zavala DPT
--- NOTE | 2021-10-14 16:52 | NCONE_ITS ---
Date of service: 10/14/21 Time of Service: 16:52 Assessment and Plan Assessment and plan (1) Acute CVA (cerebrovascular accident): Status: Acute (2) Atrial fibrillation: Status: Acute (3) Receptive aphasia: Status: Acute (4) Carotid stenosis, left: Status: Acute Assessment and plan: Mr. Poole has suffered a left frontotemporal ischemic stroke manifested by receptive aphasia with apparent recurrent stroke vs recrudescence in the setting of Ativan earlier today. He is reportedly back to baseline at present, however, I noted naming errors in general conversation (but not on confrontation naming) as well as difficulty with following a 3-step command. This could be residual from inial stroke, could be indicative of a recurrent stroke, or could be not related (e.g. due to pre-stroke cognitive/neurodegenerative changes). I do not think repeating a brain MRI to see if there is recurrent stroke would be helpful as he was already symptomatic during the initial MRI - thus we have no comparison. Further, he would require Ativan administration again, which did not go well. Otherwise, etiology of his stroke is complicated. He appears to have a L carotid stenosis - confirmation with CTA pending - as we all as atrial fibrillation. If the carotid stenosis is real, I would lean towards that being the most likely etiology, however, I am not sure that we can know. Significant thought into what we should do medication murillo balancing protecting from recurrent stroke vs not causing secondary hemorrhage. I am not sure what the right thing to do is. Ultimately decided to stop aspirin and start clopidogrel - but not load - as well as start IV heparin drip. Pending CTA carotids will finalize medications. If stenosis present, recommend vascular evaluation. Work-up: -CTA neck w/ to look at extracranial vasculature -TTE with bubble study -Telemetry Medications: -clopidogrel 75mg daily for secondary stroke prevention, starting now, no loading -heparin drip, ACS protocol, no loading -atrovastatin 40mg daily for secondary stroke prevention Other: -Continue permissive hypertension -Speech therapy for speech and swallow He would like to follow-up with neurology in [place] post-hospitalization where he lives. Ok to f/up here if he cannot get in there. I will continue to follow if he is still here tomorrow. History of Present Illness History of Present Illness Chief Complaint: stroke Narrative: Handedness: right. HPI: Mr. Poole is a 76 year-old man with hypertension, hyperlipidemia, heart disease s/p stent, DM2, BARON not on CPAP, nocturnal hypoxemia with occasional O2 use (nonadherent), and GERD. He was admitted to [facility] yesterday evening after acute onset word salad. He had no associated sensory or motor deficits. He was evaluated in the ER with initial BP 183/58 and NIHSS 2. He was not a candidate for tPA as he was just outside of the time window and his symptoms were improving. In fact, by admission later last night, he was back to baseline per who is/was at bedside. ER work-up also significant for afib as seen on tele and EKG. He reportedly had prior atrial fibrillation remotely related to dehydration. He has never been on anticoagulation in the past. He was continued on his outpatient aspirin 81mg daily and atrovastatin. Of note, he stopped clopidogrel in June after being on it for the last 2-3 years. This afternoon, however, his symptoms returned after being given Ativan for the MRI. felt speech was worse than it was yesterday - gabyberish. He has been very sleepy since the medication. At present though, she feels he is now back to baseline and where he was prior to getting Ativan. They are camping in the area here where their son lives. They live in [place]. Work-up: -CTH (10/13/21): no acute findings. I reviewed these images personally and this is my personal interpretation. -CTA head (10/13/21): unremarkable. I reviewed these images personally and this is my personal interpretation. -MRI brain w/o (10/14/21): acute L frontotemporal stroke in the language cortex. No evidence of microhemorrhage. Moderate-severe generalized atrophy. I reviewed these images personally and this is my personal interpretation. -CUS: L ICA 50-69% stenosis. -Labs (10/13/21): A1c 6.8, LDL 36, trop x 2 neg, TSH 2.75 -Tele: afib, rate controlled. Review of Systems All systems reviewed & are unremarkable except as noted in HPI and below PFSH All Active Problems (Updated 10/14/21 @ 17:06 by Judi Shepard MD) Carotid stenosis, left (Acute) Receptive aphasia (Acute) Discharge planning issues (Acute) DVT prophylaxis (Acute) Non-insulin dependent type 2 diabetes mellitus (Chronic) Atrial fibrillation (Acute) Acute CVA (cerebrovascular accident) (Acute) Stroke (Chronic) Expressive aphasia (Acute) Medical History Diabetes Social History Smoking risk assessment performed?: No Visit Medication and Allergies Active Medications Generic Name Dose Route Start Last Admin Trade Name Freq PRN Reason Stop Dose Admin Acetaminophen 650 mg 10/14/21 00:03 Acetaminophen 325 Mg Tab PO Q4H PRN PRN Aspirin 81 mg 10/14/21 08:30 10/14/21 09:10 Aspirin E.C. 81 Mg Tabec PO 81 mg DAILY LISSETTE Administration Atorvastatin Calcium 40 mg 10/14/21 08:30 10/14/21 09:10 Atorvastatin 40 Mg Tab PO 40 mg DAILY LISSETTE Administration Clopidogrel Bisulfate 75 mg 10/14/21 16:38 Clopidogrel 75 Mg Tab PO 10/14/21 16:39 NOW ONE Clopidogrel Bisulfate 75 mg 10/15/21 08:30 Clopidogrel 75 Mg Tab PO DAILY [facility] Dextrose 0 gm 10/14/21 09:08 Glucose 40% Oral Solution 15 Gm/37.5 Gm Tube PO DIRECTED PRN Dextrose/Water 0 gm 10/14/21 09:08 Dextrose 50%-Water 25 Gm/50 Ml Syr IVP DIRECTED PRN Diltiazem HCl 180 mg 10/14/21 08:30 10/14/21 08:09 Diltiazem Cd 180 Mg Capcr PO Not Given DAILY [facility] Dimethicone/Zinc Oxide 0 gm 10/14/21 00:03 Bruna Protect Cream 142 Gm Tube TP PRN PRN Gabapentin 300 mg 10/14/21 08:30 10/14/21 08:02 Gabapentin 300 Mg Cap PO 300 mg DAILY LISSETTE Administration Heparin Sodium (Porcine) 25,000 units in 250 mls @ 9.5 mls/hr 10/14/21 16:45 IV INFUSION [facility] Protocol 950 UNITS/HR IV Miscellaneous Supplies 1 each 10/13/21 21:30 Iv Access IV DIRECTED [facility] Insulin Aspart 0 units 10/14/21 12:00 10/14/21 11:17 Insulin Aspart 300 Units/3 Ml Pen SC 1 unit 0800,1200,1700,2200 LISSETTE Administration Protocol Insulin Glargine 24 units 10/14/21 22:00 Insulin Glargine 100 Units/Ml Unit SC HS LISSETTE Iohexol 100 ml 10/13/21 22:30 10/13/21 22:20 Omnipaque 350 Mg/Ml 100 Ml Btl IJ 11/12/21 23:59 100 ml DIRECTED LISSETTE Administration Loratadine 10 mg 10/14/21 08:30 10/14/21 08:02 Loratidine 10 Mg Tab PO 10 mg DAILY LISSETTE Administration Melatonin 6 mg 10/14/21 00:03 Melatonin 3 Mg Tab PO HS PRN Non-Formulary Medication 10 mg 10/14/21 08:30 Dapagliflozin [Farxiga] PO DAILY LISSETTE Oxycodone/Acetaminophen 1 tab 10/14/21 08:30 10/14/21 14:23 Oxycodone 5 Mg/Acetaminophen 325 Mg Tab PO 1 tab TID LISSETTE Administration Pantoprazole Sodium 20 mg 10/15/21 07:30 Pantoprazole 20 Mg Tabcr PO DAILY@0730 LISSETTE Sodium Chloride 0 ml 10/13/21 21:29 Normal Saline Flush 10 Ml Syr IVP PRN PRN Sodium Chloride 50 ml 10/13/21 22:30 10/13/21 22:21 Normal Saline 250 Ml Bag IJ 250 ml DIRECTED LISSETTE Administration Allergies hydromorphone [From Dilaudid] Adverse Reaction (Unverified 10/13/21 21:48) Exam Narrative Exam Narrative: Physical Exam: Constitutional: Patient of apparent stated age, well nourished, well developed, no acute distress Neck: Supple, no meningismus CV: purnima, ?irregular Resp: CTAB Abd: Soft, nontender, nondistended Extrem: no edema or cyanosis Neuro: MS/Language/Speech: Alert, oriented, no dysarthria; fluency intact; he had same naming errors in general speech but none on confrontation naming; repetition intact; able to follow a 2-step command across the midline but not 3 CN: PERRL, EOMI, visual regalado full, trigeminal sensation intact, no facial asymmetry, hearing intact, palate elevates symmetrically, tongue protrudes midline, SCM and trap strength intact Motor: Normal bulk and tone. FMM intact, no pronator drift. 5/5 strength in bilateral upper and lower extremities. Sensation: Intact to light touch throughout Reflexes: 2+ DTRs, +Babinski on right and neutral on the L Coordination: Finger to nose performed without dysmetria Gait: not performed Results Last Vital Signs Temp 97.2 F L 10/13/21 20:42 Pulse 48 L 10/14/21 13:01 Resp 20 10/14/21 13:30 BP 131/51 L 10/14/21 13:01 Pulse Ox 95 10/14/21 13:30 Labs Result diagrams: 10/13/21 21:45 10/14/21 09:18 Labs: Laboratory Results - last 24 hr 10/13/21 10/13/21 10/13/21 21:30 21:44 21:45 WBC RBC Hgb Hct MCV MCH MCHC RDW Plt Count MPV Immature Gran % Neutrophils % Lymphocytes % Monocytes % Eosinophils % Basophils % Nucleated RBC % Absolute Neutrophils Absolute Lymphocytes Absolute Monocytes Absolute Eosinophils Absolute Basophils PT Cancelled INR Cancelled APTT Cancelled D-Dimer Cancelled Sodium 139 Potassium 4.8 Chloride 104 Carbon Dioxide 27.0 Anion Gap 8.0 BUN 28 H Creatinine 1.7 H Estimated GFR/1.73 m2 39.28 Glucose 151 H Hemoglobin A1c Calcium 9.7 Magnesium 2.5 H Total Bilirubin 0.4 AST 20 ALT 22 Alkaline Phosphatase 69 Troponin I < 50 NT-Pro-B Natriuret Pep Total Protein 9.2 H Albumin 4.5 Triglycerides Total Cholesterol LDL Cholesterol, Calc HDL Cholesterol TSH Urine Color Urine Clarity Urine pH Ur Specific [place] Urine Protein Urine Ketones Urine Blood Urine Nitrite Urine Bilirubin Urine Urobilinogen Ur Leukocyte Esterase Urine Glucose COVID-19 Source Nasal/Nares SARS-CoV-2 (PCR) Negative 10/13/21 10/13/21 10/13/21 21:45 21:45 21:56 WBC 8.36 RBC 3.96 L Hgb 12.0 L Hct 37.3 L MCV 94 MCH 30.3 MCHC 32.2 RDW 14.9 H Plt Count 250 MPV 9.7 Immature Gran % 0.4 Neutrophils % 66.8 Lymphocytes % 23.4 Monocytes % 5.9 Eosinophils % 3.0 Basophils % 0.5 Nucleated RBC % 0.0 Absolute Neutrophils 5.59 Absolute Lymphocytes 1.96 Absolute Monocytes 0.49 Absolute Eosinophils 0.25 Absolute Basophils 0.04 PT INR APTT D-Dimer Sodium Potassium Chloride Carbon Dioxide Anion Gap BUN Creatinine Estimated GFR/1.73 m2 Glucose Hemoglobin A1c Calcium Magnesium Total Bilirubin AST ALT Alkaline Phosphatase Troponin I NT-Pro-B Natriuret Pep 1745 H Total Protein Albumin Triglycerides Total Cholesterol LDL Cholesterol, Calc HDL Cholesterol TSH 2.75 Urine Color Yellow Urine Clarity Clear Urine pH 5.5 Ur Specific [place] 1.015 Urine Protein Negative Urine Ketones Negative Urine Blood Negative Urine Nitrite Negative Urine Bilirubin Negative Urine Urobilinogen 0.2 Ur Leukocyte Esterase Negative Urine Glucose 500 H COVID-19 Source SARS-CoV-2 (PCR) 10/14/21 10/14/21 10/14/21 01:06 09:18 09:18 WBC RBC Hgb Hct MCV MCH MCHC RDW Plt Count MPV Immature Gran % Neutrophils % Lymphocytes % Monocytes % Eosinophils % Basophils % Nucleated RBC % Absolute Neutrophils Absolute Lymphocytes Absolute Monocytes Absolute Eosinophils Absolute Basophils PT INR APTT D-Dimer Sodium 139 Potassium 4.8 Chloride 104 Carbon Dioxide 24.7 Anion Gap 10.3 BUN 26 H Creatinine 1.2 Estimated GFR/1.73 m2 58.71 Glucose 139 H Hemoglobin A1c 6.8 H Calcium 9.2 Magnesium Total Bilirubin AST ALT Alkaline Phosphatase Troponin I < 50 NT-Pro-B Natriuret Pep Total Protein Albumin Triglycerides 65 Total Cholesterol 95 LDL Cholesterol, Calc 36 HDL Cholesterol 46 TSH Urine Color Urine Clarity Urine pH Ur Specific [place] Urine Protein Urine Ketones Urine Blood Urine Nitrite Urine Bilirubin Urine Urobilinogen Ur Leukocyte Esterase Urine Glucose COVID-19 Source SARS-CoV-2 (PCR)
[2021-10-14] MEDS: Clopidogrel 75 MG TAB PO (17:05)
--- NOTE | 2021-10-14 17:07 | PDOC.STREC ---
Date of service: 10/14/21 Time of Service: 17:07 Speech Therapy Recommendations Report ST Recommendations: Consult recieved, chart reviewed. New MRI findings today indicate acute vs subacute L CVA. Attempting to see patient in ER around mid-day for communication screen this date. At 12:15 his mental status was not appropriate to conduct examination as he had been given large dose of ativan, per RN, for his earlier MRI. At this time he was somnolant, attempting to remove PB cuff, and unable to participate or respond to questions, but his was present and able to provide some history. She reports initially his symptoms presented as some confusion, difficulty with naming, including possible perseverative naming. She reports that she felt his symptoms had largely resolved this morning, but then he was given atavan prior to his MRI and mental status is now worsened including word salad and confusion, somnolence. She also reports that he has had some difficulty with swallowing and foods getting stuck for several years prior to this event. Returning later in afternoon after he was reported with mental status adequate to participate in PT evaluation, but unable to see as he was seeing another provider. AUTO PARTS PROFESSIONAL to return in morning to re-attempt bedside cognitive-linguistic and swallow screen. Coding
[2021-10-14 22:50] LABS: PTT Activated 34.3 sec (21.0-27.5)
[2021-10-14] MEDS: Insulin Glargine 300 UNITS/3 ML PEN 24 UNITS SC (23:34)
[2021-10-15] VITALS (9 sets, daily range): BP systolic 138–157; BP diastolic 53–77; PULSE 48–97; RESP 16–20; TEMP 36.2–37.4; O2SAT 94–97
--- NOTE | 2021-10-15 | DI.CT_ITS ---
Exam(s) CT CAROTID NECK CTA EXAM: CT CAROTID NECK CTA CLINICAL HISTORY: carotid stenosis on ultrasound. TECHNIQUE: Imaging Protocol: Axial CT angiography was performed with multi-slice acquisition and mu lti-planar and/or 3D reconstructions. CONTRAST MATERIAL: Intravenous: Omnipaque 350 Contrast volume:100 COMPARISON: CT CT BRAIN CTA from 10/13/2021 FINDINGS: CTA NECK W: AORTIC ARCH ANATOMY: Conventional Anterior circulation: Both common carotid arteries ascend with normal luminal diameters. There is heavily calcified plaque at the left carotid bifurcation proximal left internal carotid artery with approximately 70-80 perce nt stenosis at this level. Above this level the left ICA is patent in the upper neck and skull base- carotid canal. The right carotid bifurcation exhibits significantly milder plaque without significant stenosis, appr oximately 10 percent. Some tortuosity of the distal right ICA in the upper neck is noted but without significant stenosis and this vessel is shown to be patent in the skull base-carotid canal. Posterior circulation: Both vertebral arteries originate in conventional fashion off the subclavian arteries and there is no significant stenosis in the subclavian arteries proximal to the vertebral artery takeoff points. Don th vertebral arteries ascend in the foramen transverse area with approximately equal normal diameters and no evidence of intraluminal thrombus nor dissection. At the skull base both vertebral arteries contribute to the formation of the basilar artery although the left vertebral artery lumen becomes th in most distally. IMPRESSION: 1. Main finding here is significant stenosis at the left carotid bulb-proximal left ICA where there is approximately 80 percent stenosis at this level due to calcified and noncalcified plaque. 2. There is no hemodynamically significant stenosis on the opposite-right side. 3. Both vertebral arteries are patent as described above and both contribute to the formation of th e basilar artery at the skull base. RADIATION DOSE DELIVERED: 309.05mGy.cm Total DLP DATA REPOSITORY: All CT scans at this facility are submitted to the National Radiology Data Registry (NRDR) Dose Index Registry (DIR) with the [employer] [place] [employer] [employer] (ACR). RADIATION OPTIMIZATION: All CT scans at this facility use at least one of these dose optimization te chniques: automated exposure control; mA and/or kV adjustment per patient size (includes targeted exa ms where dose is matched to clinical indication); or iterative reconstruction.
[2021-10-15 06:29] LABS: PTT Activated 39.9 sec (21.0-27.5)
[2021-10-15] MEDS: Atorvastatin 40 MG TAB PO (07:58)
[2021-10-15] MEDS: Loratidine 10 MG TAB PO (07:58)
[2021-10-15] MEDS: dilTIAZem CD 180 MG CAPCR PO (07:58)
[2021-10-15] MEDS: Gabapentin 300 MG CAP PO (07:59)
[2021-10-15] MEDS: Pantoprazole 20 MG TABCR PO (07:59)
[2021-10-15] MEDS: Clopidogrel 75 MG TAB PO (07:59)
[2021-10-15] MEDS: oxyCODONE 5 mg/Acetaminophen 325 mg TAB 1 TAB PO (07:59)
[2021-10-15] MEDS: Normal Saline Flush 10 ML SYR IVP (08:11)
[2021-10-15] MEDS: Omnipaque 350 MG/ML 100 ML BTL IJ (08:53)
--- NOTE | 2021-10-15 08:58 | PDOC.CMIN ---
- If Service Date Differs Date of service: 10/15/21 Time of Service: 08:58 Care Management Initial Assess REASON FOR HOSPITALIZATION:: Stroke PAST MEDICAL HISTORY/PAST SURGICAL HISTORY:: All Active Problems. Stroke (Chronic). Expressive aphasia (Acute). Medical History. Diabetes PREVIOUS FUNCTIONAL STATUS/SOCIAL/FAMILY SUPPORTS:: Castro lives in [place] with his , Georgina. They have two adult children. He is independent at baseline. CURRENT FUNCTIONAL STATUS:: Castro was not available when CM attempted to meet with him. Per MD, he has been accepted in transfer to [facility], and will likely transport today vs tomorrow, depending on bed availability. CM will continue to follow. ADVANCE DIRECTIVES:: Not on file at [facility]. Has patient been provided with info about the portal/API?: Yes Did the patient sign up for the portal?: No CODE STATUS:: Full Code INSURANCE COVERAGE / FINANCIAL ISSUES:: MCR/ BCBS CURRENT HOME/COMMUNITY SERVICES/EQUIPMENT:: None known. PRIMARY CARE PHYSICIAN:: No local PCP. POTENTIAL DISCHARGE NEEDS:: Follow up appointments. PATIENT/FAMILY EDUCATION NEEDS:: Review discharge instructions and limitations, discussion of self care needs including ask me three. ANTICIPATED BARRIERS TO DISCHARGE:: None. TRANSPORTATION:: Via private vehicle by family. PLAN:: Anticipate Castro will be transferred to [facility] for further evaluation. He will transport via EMS, coordinated by RN boxing and pressing supervisor. He will follow up with his PCP and discharge plan of care once he is medically cleared to return home. CM will continue to follow.
[2021-10-15 10:41] LABS: Anion Gap 9.4 mmol/L (3-11); BUN 27 mg/dL (7-18); CO2 27.6 mmol/L (21.0-32.0); CREATININE 1.3 mg/dL (0.70-1.30); Calcium 9.8 mg/dL (8.5-10.1); Chloride 106 mmol/L (98-107); Estimated GFR 53.53 (mL/min/1.73m2); Glucose 136 mg/dL (74-106); Magnesium 2.2 mg/dL (1.8-2.4); Potassium 4.7 mmol/L (3.5-5.1); Sodium 143 mmol/L (136-145)
--- NOTE | 2021-10-15 11:36 | W.INDIABCONS ---
Date of service: 10/15/21 Time of Service: 11:36 Diabetes Inpatient Consult Reason for Visit: Diabetes consult DESCRIPTION/ASSESSMENT: Mr. Poole is s/p stroke. His BMI is 26.6 kg/m2 which is WNL for his age. His a1c is 6.8 which is at target. PO intake was good until today he has eaten very little. Morning blood sugars are at target however mealtime ones are not. He is getting glargine at night and aspart correction at meals. INTERVENTION: Given his blood sugar patterns here, no adjustment is needed at this time in his glargine. He may require some additional aspart for carbohydrate correction. We will provide him with Glucerna supplements which may be easier for him to consume given his somnolence. PLAN: Will continue to follow blood sugars and PO. Will monitor tolerance to Glucerna. Will evaluate nutrition and diabetes care plan onging and adjust as needed. Time Spent in Nutritional Counseling and Treatment: 0
[2021-10-15] MEDS: Insulin Aspart 300 UNITS/3 ML PEN SC ×3 (12:28→20:40)
--- NOTE | 2021-10-15 12:29 | W.PM.PROGNOT ---
Date of Service Date of service: 10/15/21 Time of Service: 12:33 Assessment and Plan Assessment and plan (1) Acute CVA (cerebrovascular accident): Status: Acute (2) Atrial fibrillation: Status: Acute (3) Receptive aphasia: Status: Acute (4) Carotid stenosis, left: Status: Acute Assessment and plan: Mr. Poole has suffered a left frontotemporal ischemic stroke manifested by receptive aphasia with apparent recurrent stroke vs recrudescence in the setting of Ativan yesterday - now recovered. Today he continues to demonstrate comprehension deficits. This could be residual from initial stroke, could be indicative of a recurrent stroke (yesterday s/p Ativan), or could be not related (e.g. due to pre-stroke cognitive/neurodegenerative changes). Etiology of his stroke is complicated, but I think most likely due to L carotid stenosis as confirmed on CTA neck imaging. Agree with vascular surgery consultation. He should continue medications as below unchanged for now, however, would defer to vacsular team on medication management pending their plan (transfer vs outpatient f/up). Work-up: -TTE with bubble study - report pending -Telemetry Medications: -clopidogrel 75mg daily for secondary stroke prevention -heparin drip, ACS protocol, no loading -atrovastatin 40mg daily for secondary stroke prevention Other: -Continue permissive hypertension -Speech therapy for speech and swallow He would like to follow-up with neurology in [place] post-hospitalization where he lives. Ok to f/up here if he cannot get in there. Subjective Subjective Interval history since last seen: No events overnight. Clinically stable. Started on clopidogrel and heparin gtt. -CTA neck (10/15/21): L ICA stenosis with complex plaque. I reviewed these images personally and this is my personal interpretation. -TTE: pending. I reviewed his MRI and CTA images with him and his . Exam Narrative Exam Narrative: Physical Exam: Constitutional: Patient of apparent stated age, well nourished, well developed, no acute distress Neuro: MS/Language/Speech: Alert, oriented, no dysarthria; fluency, confrontation naming, and repetition intact; no dysnomia seen in general conversation today; unable to do 2-step command across the midline today Objective Last Vital Signs Temp 98.1 F 10/15/21 11:23 Pulse 66 10/15/21 11:23 Resp 18 10/15/21 11:23 BP 146/66 H 10/15/21 11:23 Pulse Ox 95 10/15/21 11:23 Laboratory Results - last 24 hr 10/14/21 10/15/21 10/15/21 22:31 05:32 05:32 APTT 34.3 H 39.9 H Sodium 143 Potassium 4.7 Chloride 106 Carbon Dioxide 27.6 Anion Gap 9.4 BUN 27 H Creatinine 1.3 Estimated GFR/1.73 m2 53.53 Glucose 136 H Calcium 9.8 Magnesium 2.2
[2021-10-15 14:19] LABS: PTT Activated 48.3 sec (21.0-27.5)
[2021-10-15] MEDS: Gabapentin 600 MG TAB PO ×2 (14:32→20:41)
[2021-10-15] MEDS: HYDROcodone 10/Acetaminophen 325 TAB PO ×2 (14:32→20:41)
--- NOTE | 2021-10-15 15:01 | DSE_ITS ---
Date of service: 10/15/21 Time of Service: 15:01 DS: Diagnosis Discharge Diagnosis (1) Acute CVA (cerebrovascular accident): Status: Acute (2) Carotid stenosis, left: Status: Acute (3) Receptive aphasia: Status: Acute (4) Oropharyngeal dysphagia: Status: Acute Asessment and Plan: mild, only with water; would benefit from outpatient speech follow up. (5) Atrial fibrillation: Status: Acute (6) Non-insulin dependent type 2 diabetes mellitus: Status: Chronic Discharge Plan Disposition Patient Disposition: [facility] Condition: Stable Discharge Details Reason For Visit: Stroke Admit Date/Time: 10/15/21 14:35 Admit Provider: Joaquin Frank Attending Provider: Joaquin Frank [facility] Hospital Course: Mr Poole is a 76 year old male with PMHx of IDDM2, Atrial flutter not on anticoagulation, HTN, hyperlipidemia, who was admitted to [facility] hospitalist service on 10/14/21 having presented with acute onset of difficulty naming cards while playing cards at about 5 pm on 10/13/21. His ED workup was significant for a new diagnosis of atrial fibrillation, which was already rate-controlled, negative CT/CTA of the head. His MRI of the brain did confirm a left frontotemporal stroke. Carotid doppler was positive for a 50-69% stenosis of the mid to distal left internal carotid artery. The patient received ativan for his MRI and, returning from it, did have a recurrence of symptoms. Additionally, he was found to have receptive aphasia. It was unclear if this was a recurrent stroke or a recrudescence of the current stroke after administration of ativan. Given this information, the patient's regimen was changed from baby aspirin (which he was on at home) to plavix + heparin heparin gtt. CTA Of the neck was obtained and revealed a high grade stenosis of the left ICA (approximately 80%). Given this, a vascular intervention was recommended on urgent basis. [facility] did not have bed capacity to accept this patient in transfer. [facility] was contacted, and Dr Cleary of vascular neurology agreed that the patient is a candidate for a carotid endarterectomy and accepts the patient in transfer, with bed availability expected within the next 24-48 hrs. The patient is stable for transfer and in agreement to transfer. He still has a subtle receptive aphasia deficit, but is no longer exhibiting expressive aphasia. Of note, the patient has had several episodes of bradycardia to 40s noted on telemetry while asleep. Additionally, he does, according to , sometimes stop breathing at night. We recommend BARON testing as outpatient. He does have mild oropharyngeal dysphagia with water only and would benefit from outpatient speech therapy follow up Care for patient in addition to completion of his transfer paperwork took 60 minutes. Please, look for MAR for list of his inpatient medications. The list of medic ations below reflects his outpatient prescriptions. Home Meds and New Rx's Prescriptions: No Action atorvastatin 40 mg Tablet 40 mg PO DAILY diltiazem HCl 180 mg Capsule,Extended Release 24 Hr 180 mg PO DAILY aspirin [Aspir-81] 81 mg Tablet,Delayed Release (Dr/Ec) 81 mg PO DAILY metformin 1,000 mg Tablet 1,000 mg PO BID PC omeprazole 20 mg Capsule,Delayed Release(Dr/Ec) 20 mg PO DAILY loratadine [Claritin] 10 mg Tablet 10 mg PO DAILY Farxiga 10 mg Tablet 10 mg PO DAILY Lantus U-100 Insulin 100 unit/mL Cartridge 24 unit SUBCUT HS methocarbamol 500 mg Tablet 500 mg PO Q6H PRN gabapentin 600 mg Tablet 600 mg PO TID lisinopril 20 mg Tablet 20 mg PO DAILY hydrocodone-acetaminophen 10-325 mg Tablet 2 tab PO TID tramadol 50 mg Tablet 50 mg PO Q8H Discharge Instructions Instructions: A-fib (Atrial Fibrillation) (DC), Carotid Artery Disease (DC), Ischemic Stroke (DC) Referrals: Gideon Cleary [Other] Sandra Engel [SPEECH LANGUAGE PATHOLOGIST] - (oropharyngeal dysphagia) Judi Shepard MD [ [facility] STAFF PHYSICIAN] - Activity:: Activity as Tolerated Equipment/Supplies:: No Equipment Needed Diet:: As Tolerated Discharge Orders Discharge Orders: Discharge Order (Routine); Ordered 10/16/21 Ordered By: Iliana Sainz DS: Summary Time Spent with Patient providing and/or coordinating discharge services: Greater than 30 minutes Status at Discharge Functional status at discharge: independent ambulation Overall status at discharge: patient is progressing back to baseline Mental Status: mental status grossly normal Speech and Movement: speech and movement normal Mood: congruent mood Affect: normal affect Exam Narrative Exam Narrative: General: Pleasant elderly male who is very moser, A&Ox3, NAD, able to speak in full sentences and I am not observing either receptive or expressive aphasia at time of my exam. No focal deficits HEENT: EOMI, MMM Heart: irregularly irregular rhythm, no m/r/g Lungs: CTAB Abdomen: soft, nontender, nondistended Extremities: no edema BLEs, able to move all 4 extremities -5/5 strength throughout. Psych Mental Status: mental status grossly normal Speech and Movement: speech and movement normal Mood: congruent mood Affect: normal affect DS: Data Vitals/I&O Vitals and I&O: Vital Signs Temperature 36.7 C 10/15/21 11:23 Temperature Source Tympanic 10/15/21 11:23 Pulse 66 10/15/21 11:23 Pulse Rhythm Irregular 10/15/21 09:48 Pulse 70 10/14/21 13:30 Respiratory Rate 18 10/15/21 11:23 Respiratory Effort Non-Labored 10/15/21 09:48 Respiratory Depth Normal 10/15/21 09:48 Respiratory Pattern Normal 10/15/21 09:48 Blood Pressure 146/66 H 10/15/21 11:23 Blood Pressure Mean 69 10/14/21 13:01 Blood Pressure Position Supine 10/13/21 20:42 Pulse Oximetry 95 10/15/21 11:23 Oxygen Delivery Method Room Air 10/15/21 11:23 Oxygen Flow Rate 0 10/15/21 11:23 Pain Level 0 10/15/21 14:32 Intake & Output 10/14/21 10/15/21 10/15/21 23:59 11:59 23:59 Intake Total 220.483 / 220.483 493.967 / 825.842 331.875 / 825.842 Balance 220.483 / 220.483 493.967 / 825.842 331.875 / 825.842 Weight 74.843 kg Intake: IV 70.483 / 70.483 93.967 / 185.842 91.875 / 185.842 Oral 150 / 150 400 / 640 240 / 640 Other: Urine Color Yellow Yellow Urine Appearance Clear Clear Urine Odor None Normal Comment large amount spilled on floor Voiding Methods Toilet Data Completed and Pending Completed studies during hospitalization [Text1]: CXR: Probable pulmonary fibrosis, possible left-sided acute infiltrate. (No pulmonary disease clinically). CT/CTA head: Normal CT of the head without contrast. Normal CTA examination of the [place]. ? Normal post contrast cranial CT. MRI brain: The appearance is consistent with small acute or subacute left temporal/frontal lobe infarct. US carotid: The Doppler findings are consistent with stenosis of 50-69 percent of the luminal diameter of the mid to distal left internal carotid artery. No significant stenosis identified in right ICA or elsewhere. CTA neck: 1.? Main finding here is significant stenosis at the left carotid bulb-proximal left ICA where there is approximately 80 percent stenosis at this level due to calcified and noncalcified plaque. 2. There is no hemodynamically significant stenosis on the opposite-right side. 3. ? Both vertebral arteries are patent as described above and both contribute to the formation of the basilar artery at the skull base. Echo: done; results pending Labs on day of discharge: Labs from last 24 hours 10/15/21 10/15/21 10/15/21 13:20 05:32 05:32 APTT 48.3 H 39.9 H Sodium 143 Potassium 4.7 Chloride 106 Carbon Dioxide 27.6 Anion Gap 9.4 BUN 27 H Creatinine 1.3 Estimated GFR/1.73 m2 53.53 Glucose 136 H Calcium 9.8 Magnesium 2.2 10/14/21 22:31 APTT 34.3 H Sodium Potassium Chloride Carbon Dioxide Anion Gap BUN Creatinine Estimated GFR/1.73 m2 Glucose Calcium Magnesium PFSH All Active Problems (Updated 10/15/21 @ 15:51 by Iliana Sainz MD) Oropharyngeal dysphagia (Acute) Carotid stenosis, left (Acute) Receptive aphasia (Acute) Discharge planning issues (Acute) DVT prophylaxis (Acute) Non-insulin dependent type 2 diabetes mellitus (Chronic) Atrial fibrillation (Acute) Acute CVA (cerebrovascular accident) (Acute) Stroke (Chronic) Expressive aphasia (Acute) Medical History (Updated 10/15/21 @ 15:51 by Iliana Sainz MD) Atrial flutter Chronic pain Diabetes Social History Smoking risk assessment performed?: No
--- NOTE | 2021-10-15 16:06 | SP_ITS ---
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 Precautions: Standard, Full Code Interval history since time of admission: BASKET FILLER Consult received 10/14 Patient unable to be evaluated 10/14. MRI findings indicate acute vs subacute L CVA. Attempting to see patient in ER around mid-day for communication screen. At 12:15 his mental status was not appropriate to conduct examination as he had been given large dose of ativan, per RN, for his earlier MRI. At this time he was somnolant, attempting to remove PB cuff, and unable to participate or respond to questions, but his was present and able to provide some history. She rep orts initially his symptoms presented as some confusion, difficulty with naming, including possible perseverative naming. She reports that she felt his symptoms had largely resolved this morning, but then he was given atavan prior to his MRI and mental status is now worsened including word salad and confusion, somnolence. She also reports that he has had some difficulty with swallowing and foods getting stuck for several years prior to this event.? Returning later in afternoon after he was reported with mental status adequate to participate in PT evaluation, but unable to see as he was seeing another provider. BASKET FILLER to return in morning to re-attempt bedside cognitive- linguistic and swallow screen. Subjective: Patient received alert/awake in late afternoon this date, seated at EOB, agreeable to evaluation, able to clearly communicate wants/needs effectively; able to demonstrate comprehension of recommendations for safe p.o. intake upon discharge once deemed medically stable.? 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 For these reasons, including inability to rule out possible silent aspiration in context of recent acute stroke (ie, unable to determine without objective imaging; unavailable at current facility given schedule availability/staffing), patient may benefit from outpatient BASKET FILLER evaluation to reassess presence of aphasia and/or dysphagia presentation with further standardized assessment and/or objective imaging as appropriate (VFSE/MBSS, FEES). Patient currently appears to be at low-moderate risk for aspiration-related pulmonary complication, given adequate oral hygiene & presumed immunocompetence; improvements in physical mobility and overall pulmonary function likely to further reduce this risk. Further acute BASKET FILLER services not warranted at this time. Recommend outpatient BASKET FILLER follow up, especially if outlined symptoms persist or become worse. ? Provided education to patient re: anatomy/physiology of swallowing mechanism, overt s/sx to monitor for re: potential aspiration of food / liquids, importance of thorough oral care in context of possible silent aspiration (unable to determine without objective imaging; unavailable at current facility given schedule availability/staffing), and relationship between respiratory function changes and deglutition. Instrumentation: May be appropriate for outpatient VFSE/MBSS or FEES pending follow up with BASKET FILLER. Diet Texture Modification(s): IDDSI Level(s) 7-Regular Solids, 0-Thin Liquids Medication Intake: Whole with 0-Thin Liquids Alter medications only as advised by MD or Pharmacist RISK MANAGEMENT: Oral hygiene BID/2x per day and before/after PO intake using friction with toothbrush on all oral structures as tolerated HOB upright as tolerated; upright for all PO intake. Encourage physical mobility as tolerated. Level of Assistance/Supervision: Independent Strategies/Adaptations/Assistive Equipment: Small sips and bites when eating, Slow rate of intake, Alternate intake of liquids and solids Posture/Positioning Needs: Maintain upright position at least 30 minutes after meals, Avoid meals/snacks 2- 3 hours prior to reclining/sleeping, Sleep with head of bed elevated to reduce likelihood of nocturnal reflux Specialist referrals: N/A Ancillary tests: N/A Therapy: Outpatient BASKET FILLER services upon discharge OBJECTIVE: PMHX: Diabetes HTN Recent Anterior approach DIANA in April Cardiac Stent Social History/Home Situation: Lives in [place] with his spouse.? Currently staying in a travel trailer at the [facility] in [place].? Has a few steps to enter the camper.? Per his spouse he has been having some balance deficits lately premorbid of this current admission. Equipment Owned/DME: ? Has straight cane and walker.? Utilizes the cane at times for pain. ? Predisposing dysphagia risk factors: BARON Clinical signs of possible chronic dysphagia: delayed cough with YSP Precipitating dysphagia risk factors / triggering event: recent acute CVA ? Temp: 98.6 F Sp02: 96% RR: 16 / RA ? Cranial nerve exam / Oral Motor: CN V: facial sensation intact to light touch labial protrusion symmetrical labial coordination/ROM WFL Jaw excursion/lateralization intact mastication intact lingual/labial sensation intact suspect superior hyoid movement is mildly reduced, although cannot rule out at bedside CN VII: lateral sulcus residue absent anterior spillage not observed salivation intact CN IX/X: palatal elevation - symmetrical Vocal Quality - WFL taste - WFL onset of swallow -suspect WFL pharyngeal residue - suspect may be present nasopharyngeal regurgitation - none reported CN XII: bolus preparation/manipulation/control - WFL AP transit - WFL lingual protrusion? symmetrical lingual coordination/ROM WFL lingual residue absent ? Dentition/Oral Structures/Hygiene: anterior maxillary and mandibular incisors present maxillary and mandibular premolars present oral hygiene appears adequate-reports consistent and appropriate oral care regimen Language: - Verbal expression/fluency, naming, repetition, and auditory comprehension WFL per informal assessment - Patient able to independently follow 3+ step commands across midline w 3/3 accuracy Note: Aphasia has either resolved or performance tends to fluctuate - Patient unable to perform 2-step command across midline for Neurologist a few hours prior to this evaluation - Recall: Patient able to independently recall 3/3 verbal items after 15 min delay Standardized Language Assessment: The Bedside Western Aphasia Battery-Revised?(Bedside Record Form), a shortened version of the Western Aphasia Battery Revised (WAB-R), was administered to sample overall language abilities; it is designed to evaluate a patient's language function following stroke, dementia, or other acquired neurological disorder. (Thomas, 2006) WAB-R Bedside?Subtest Scores?are indicated below: Subtest?? Score SPONTANEOUS SPEECH ? Information Content ?10 Fluency / Grammatical Competence / Paraphasias ?9 Total? ?19 AUDITORY VERBAL COMPREHENSION ? Yes/No Questions ?9 Sequential Commands ?10 Total? ?19 REPETITION ? Repetition 10 Total? ?10 NAMING & WORD FINDING ? Object Naming ?10 Total? ?10 READING ?9 WRITING ?9 APRAXIA ?10 Bedside Aphasia Score: 96.67 Bedside Language Score: 95 Hearing: WFL Mental Status: AAOx3, recall of current events grossly intact, however unable to specify that he has had stroke (?circumlocution, recall of specific events) Speech: WFL ? Laryngeal function exam: Secretions: WFL Vocal quality: WFL MPT: DNT S/Z ratio: DNT - 1.4 or above may indicate a degree of vocal fold dysfunction Pitch range: WFL Cough: (volitional) perceptually WFL ? PO intake IDDSI 0: WFL per cup sip, overt s.sx aspiration noted x1 with YSP (3 oz. continuous water) only Section Swallow Protocol: Fail - delayed cough IDDSI 7: WFL Pill/tablet: WFL per RN report Keiko Guajardo MA CCC-BASKET FILLER Speech Language Pathologist [phone] ? BASKET FILLER CPT Codes: [id number] Coding
--- NOTE | 2021-10-15 17:10 | CHAPLAIN ---
I met Castro and his in the ED yesterday. He had spent the night there [place]. Castro's son Kumar is one of our on-call chaplains. His said he may be transferred for [facility] for further care following a stroke. Castro seems to be well support by his family. I give him a prayer shawl to take with him.
[2021-10-15] MEDS: Melatonin 3 MG TAB 6 MG PO (20:41)
[2021-10-16] VITALS (7 sets, daily range): BP systolic 119–148; BP diastolic 58–76; PULSE 42–67; RESP 16–22; TEMP 36–36.3; O2SAT 94–99
[2021-10-16 06:09] LABS: HCT 35.5 % (40.0-50.0); HGB 11.7 g/dL (13.5-17.5); MCH 29.9 pg (27.0-33.0); MCV 91 fL (80-95); Platelet Count 226 10^3/uL (130-400); RBC 3.91 10^6/uL (4.36-5.78); RDW 14.6 % (11.8-14.1); RDW-SD 48.3 fL; WBC 9.38 10^3/uL (4.4-10.8)
[2021-10-16 06:20] LABS: PTT Activated 46.5 sec (21.0-27.5)
[2021-10-16] MEDS: Gabapentin 600 MG TAB PO ×2 (08:13→13:45)
[2021-10-16] MEDS: Gabapentin 300 MG CAP PO (08:13)
[2021-10-16] MEDS: Clopidogrel 75 MG TAB PO (08:13)
[2021-10-16] MEDS: Atorvastatin 40 MG TAB PO (08:13)
[2021-10-16] MEDS: HYDROcodone 10/Acetaminophen 325 TAB PO ×2 (08:13→13:45)
[2021-10-16] MEDS: dilTIAZem 60 MG TAB PO (08:13)
[2021-10-16] MEDS: Pantoprazole 20 MG TABCR PO (08:14)
[2021-10-16] MEDS: Loratidine 10 MG TAB PO (08:14)
--- NOTE | 2021-10-16 11:07 | PDOC.CMPRO ---
- If Service Date Differs Date of service: 10/16/21 Time of Service: 11:07 Care Management Progress Note Castro will transfer to [facility], per MD. He will transport via EMS acute to acute transfer, coordinated by Nursing Plant Taxonomy Teacher.
[2021-10-16] MEDS: Insulin Aspart 300 UNITS/3 ML PEN SC (11:35)
== END 2021-10-16 16:57 | DRG 66 ==
LOC: ER 10-14 12:25 → MS 10-14 18:20
PROVIDERS: Family Medicine; Internal Medicine; Admitting Provider General Practice; Emergency Provider Emergency Medicine; Visit Provider General Practice
DX: I63.232 Cerebral infarction due to unspecified occlusion or stenosis of left carotid arteries (principal); I48.91 Unspecified atrial fibrillation; R47.01 Aphasia; E11.9 Type 2 diabetes mellitus without complications; G47.33 Obstructive sleep apnea (adult) (pediatric); I10 Essential (primary) hypertension; Z79.82 Long term (current) use of aspirin; Z79.84 Long term (current) use of oral hypoglycemic drugs; R13.12 Dysphagia, oropharyngeal phase; R00.1 Bradycardia, unspecified
CPT/HCPCS: 36415; 36416; 70496; 70498; 80048; 80053; 80061; 82962; 85027; 87635; 92610; 93005; 96374; 96375; 97162; 99285; 70551; 71045; 81003; 83036; 83735; 83880; 84443; 84484; 85025; 85379; 85610; 85730; 92523; 93010; 93306; 93880; 99219; 99226; 99239; G0378; J1941; J3490